=== PATIENT | female | born 1995 | race African-American/Black ===

== ENCOUNTER 2022-08-06 02:37 | Emergency (ER) | payer MEDICAID ==
[~2022-08-06] VITALS: Ht 167.6 cm; Wt 59.9 kg
--- NOTE | 2022-08-06 02:47 | NUR ---
BIB 87 C/O I NEED A PLACE TO STAY. I DO NOT FEEL WELL. DENIES SI/HI OR AUDITORY/VISUAL HALLUCINATIONS. STATES SHE WANTS FOOD AND HASNT EATEN TODAY. PLACED IN ER BED 15 AND SITTER AT BEDSIDE
[2022-08-06] MEDS ORDERED: OLANZAPINE 5 MG TABLET ONE (03:12)
--- NOTE | 2022-08-06 03:14 | NUR ---
PT REFUSED ZYPREXA STATES "I NEED FOOD I'M HUNGRY I DON'T NEED MEDICATION"
[2022-08-06] MEDS ORDERED: OLANZAPINE 10 MG VIAL IM ONE ×2 (03:19→03:30)
--- NOTE | 2022-08-06 03:22 | NUR ---
PT CONTINUES TO REFUSE LABS AND MEDICATION CONTINUES TO ASK FOR FOOD AND REQUESTING TO LEAVE IF NOT GIVEN FOOD. PT OFFERED JUICE AND CRACKERS BUT WANTS "REAL FOOD". MADE AWARE.
[2022-08-06] MEDS ORDERED: OLANZAPINE 5 MG TABLET PO ONE (03:30)
--- NOTE | 2022-08-06 03:36 | NUR ---
PT REQUESTING BECOMING AGGITATED WITH STAFF REQUESTING TO LEAVE. DENIES SI/HI. MADE AWARE. REFUASES TO SIGN AMA REPORT. AMBULATED OUT OF ER WITH STEADY GAIT.
[2022-08-06 03:45] VITALS: BP 135/76
== END 2022-08-06 03:46 | disposition left against medical advice (07) ==
LOC: ER 02:43
DX: R45.1 Restlessness and agitation (principal); Z20.822 Contact with and (suspected) exposure to COVID-19
CPT/HCPCS: 99283; 87426; C9803; J3490